=== PATIENT | female | born 1975 | race African-American/Black ===

== ENCOUNTER 2017-10-17 14:07 | Emergency (ER) | payer OTHER ==
[~2017-10-17] VITALS: Ht 175.3 cm; Wt 104.3 kg
[~2017-10-17 14:07] MED LIST: MOTRIN800 MG PO
== END 2017-10-17 18:23 | disposition home or self-care (01) ==
LOC: ER 14:07
DX: H60.8X2 Other otitis externa, left ear (principal)

== ENCOUNTER 2018-11-16 15:09 | Emergency (ER) | payer OTHER ==
[~2018-11-16] VITALS: Ht 175.3 cm; Wt 120.2 kg
[2018-11-16] MEDS ORDERED: TILENOR (15:43)
[2018-11-16] MEDS ORDERED: FLONASE16 GM NASAL (19:02)
[2018-11-16] MEDS ORDERED: CLARITIN-D 241 EACH PO (19:02)
== END 2018-11-16 20:46 | disposition home or self-care (01) ==
LOC: ER 15:09
DX: J06.9 Acute upper respiratory infection, unspecified (principal); J45.998 Other asthma; R09.81 Nasal congestion; R51 Headache; R07.0 Pain in throat

== ENCOUNTER 2019-03-23 16:16 | Emergency (ER) | payer OTHER ==
[~2019-03-23] VITALS: Ht 172.7 cm; Wt 117.9 kg
[~2019-03-23 16:16] MED LIST changes: +CLARITIN-D 241 EACH PO; +FLONASE16 GM NASAL; +TILENOR
[2019-03-23] MEDS ORDERED: CLARITIN10 MG PO (17:56)
[2019-03-23] MEDS ORDERED: IPRAT-ALBUT 0.5-3 ML IH (17:56)
[2019-03-23] MEDS ORDERED: TUSNEL LIQUID178 ML PO (17:56)
== END 2019-03-23 19:13 | disposition home or self-care (01) ==
LOC: ER 16:16
DX: J45.998 Other asthma (principal)

== ENCOUNTER 2020-04-10 14:58 | Emergency (ER) | payer OTHER ==
[~2020-04-10] VITALS: Ht 177.8 cm; Wt 113.4 kg
[~2020-04-10 14:58] MED LIST changes: +CLARITIN10 MG PO; +IPRAT-ALBUT 0.5-3 ML IH; +TUSNEL LIQUID178 ML PO
== END 2020-04-10 20:01 | disposition home or self-care (01) ==
LOC: ER 14:58
DX: N39.0 Urinary tract infection, site not specified (principal); N23 Unspecified renal colic

== ENCOUNTER 2020-05-12 15:59 | Emergency (ER) | payer OTHER ==
[~2020-05-12] VITALS: Ht 152.4 cm; Wt 114.8 kg
== END 2020-05-12 19:07 | disposition home or self-care (01) ==
LOC: ER 15:59
DX: J01.80 Other acute sinusitis (principal); B96.89 Other specified bacterial agents as the cause of diseases classified elsewhere

== ENCOUNTER 2021-07-08 07:11 | Emergency (ER) | payer OTHER ==
[~2021-07-08] VITALS: Ht 172.7 cm; Wt 120.2 kg
== END 2021-07-08 09:00 | disposition home or self-care (01) ==
LOC: ER 07:11
DX: S40.011A Contusion of right shoulder, initial encounter (principal); W10.8XXA Fall (on) (from) other stairs and steps, initial encounter; Y93.89 Activity, other specified; Y92.89 Other specified places as the place of occurrence of the external cause; Z88.6 Allergy status to analgesic agent

== ENCOUNTER 2021-07-11 07:27 | Emergency (ER) | payer OTHER ==
[~2021-07-11] VITALS: Ht 172.7 cm; Wt 120.2 kg
== END 2021-07-11 12:22 | disposition home or self-care (01) ==
LOC: ER 07:27
DX: J22 Unspecified acute lower respiratory infection (principal); U07.1 COVID-19; Z88.8 Allergy status to other drugs, medicaments and biological substances

== ENCOUNTER 2022-06-03 08:48 | Emergency (ER) | payer OTHER ==
[~2022-06-03] VITALS: Ht 172.7 cm; Wt 120.2 kg
[~2022-06-03 08:48] MED LIST changes: +BENADRYL ALLERG25 MG PO; +MEDROLPACK PO
[2022-06-03] MEDS ORDERED: TAMS0.4C PO (14:39)
[2022-06-03] MEDS ORDERED: KETO10TA2 PO (14:39)
== END 2022-06-03 14:47 | disposition home or self-care (01) ==
LOC: ER 08:48
DX: R10.13 Epigastric pain (principal); K76.0 Fatty (change of) liver, not elsewhere classified

== ENCOUNTER 2022-08-21 08:47 | Emergency (ER) | payer OTHER ==
[~2022-08-21] VITALS: Ht 172.7 cm; Wt 113.4 kg
[~2022-08-21 08:47] MED LIST changes: +KETO10TA2 PO; +TAMS0.4C PO
== END 2022-08-21 11:41 | disposition home or self-care (01) ==
LOC: ER 08:47
DX: J45.998 Other asthma (principal); J32.9 Chronic sinusitis, unspecified; Z88.6 Allergy status to analgesic agent; Z91.013 Allergy to seafood; Z20.822 Contact with and (suspected) exposure to COVID-19

== ENCOUNTER 2022-10-19 09:16 | Inpatient (IN) | payer OTHER ==
[~2022-10-19] VITALS: Ht 172.7 cm; Wt 120.2 kg
[2022-10-19] MEDS ORDERED: UCERIS9 MG (09:32)
== END 2022-10-23 16:07 | disposition home or self-care (01) | DRG 203 ==
LOC: ER 09:16 → MEDJ 18:27
PROVIDERS: General Practice; Internal Medicine Infectious Disease; ADMIT Internal Medicine; ATTEND Internal Medicine
PROC: B922ZZZ Computerized Tomography (CT Scan) of Paranasal Sinuses (ICD-10-PCS; principal; 2022-10-20)
PROC: BW24ZZZ Computerized Tomography (CT Scan) of Chest and Abdomen (ICD-10-PCS; 2022-10-20)
DX: J45.51 Severe persistent asthma with (acute) exacerbation (principal); J32.9 Chronic sinusitis, unspecified; M79.18 Myalgia, other site; E66.01 Morbid (severe) obesity due to excess calories

== ENCOUNTER 2023-04-09 08:08 | Emergency (ER) | payer OTHER ==
[~2023-04-09] VITALS: Ht 175.3 cm; Wt 111.1 kg
[~2023-04-09 08:08] MED LIST changes: +UCERIS9 MG
== END 2023-04-09 14:05 | disposition home or self-care (01) ==
LOC: ER 08:08
DX: M54.9 Dorsalgia, unspecified (principal); Z91.013 Allergy to seafood; J45.909 Unspecified asthma, uncomplicated

== ENCOUNTER 2023-05-22 06:03 | Emergency (ER) | payer OTHER ==
[~2023-05-22] VITALS: Ht 172.7 cm; Wt 117.0 kg
[2023-05-22] MEDS ORDERED: METHYLPREDNISOLONE SOD SUCC 125 MG VIAL IV STA (10:11)
== END 2023-05-22 10:35 | disposition home or self-care (01) ==
LOC: ER 06:03
DX: J45.901 Unspecified asthma with (acute) exacerbation (principal); Z91.013 Allergy to seafood

== ENCOUNTER 2023-06-01 06:44 | Emergency (ER) | payer OTHER ==
[~2023-06-01] VITALS: Ht 172.7 cm; Wt 113.4 kg
[2023-06-01] MEDS ORDERED: METHYLPREDNISOLONE SOD SUCC 125 MG VIAL IV STA (08:35)
[2023-06-01] MEDS ORDERED: HYDROCODONE/CHLORPHEN P-STIREX 5 ML ML PO STA (08:36)
[2023-06-01] MEDS ORDERED: LEVALBUTEROL HCL 1.25 MG/3 ML SOLUTION IH SCH (08:45)
[2023-06-01 09:26] LABS: HEMATOCRIT 33.4 % (36.0-45.00); HEMOGLOBIN 10.2 g/dL (12.0-15.00); MEAN CORPUSCULAR HEMOGLOBIN 19.1 pg (27.00-32.0); MEAN CORPUSCULAR HGB CONC 30.6 g/dl (32.0-36.0); PLATELET COUNT 434 K/uL (150-450); RED BLOOD COUNT 5.35 M/uL (4.00-6.00); RED CELL DISTRIBUTION WIDTH 20.1 % (11.5-14.5)
[2023-06-01 09:32] LABS: MEAN CELL VOLUME 62.4 fL (80.00-100.00)
== END 2023-06-01 10:14 | disposition home or self-care (01) ==
LOC: ER 06:45
PROVIDERS: General Practice
DX: J45.909 Unspecified asthma, uncomplicated (principal); Z91.013 Allergy to seafood

== ENCOUNTER 2023-06-05 09:07 | Emergency (ER) | payer OTHER ==
[~2023-06-05] VITALS: Ht 172.7 cm; Wt 113.4 kg
[2023-06-05] MEDS ORDERED: FAMOTIDINE/PF 20 MG in 0.9 % SODIUM CHLORIDE 8 ML IV PUSH STA (09:42)
[2023-06-05] MEDS ORDERED: ONDANSETRON HCL 2 MG/ML VIAL IV ONE (09:45)
[2023-06-05] MEDS ORDERED: KETOROLAC TROMETHAMINE 30 MG VIAL IV ONE (09:45)
[2023-06-05] MEDS ORDERED: GUAIFENESIN/DEXTROMETHORPHAN 100 MG/5 ML ML PO ONE (09:45)
[2023-06-05 10:43] LABS: ALBUMIN 3.4 gm/dL (3.4-5.0); BILIRUBIN TOTAL 0.55 mg/dL (0.3-1.2); CALCIUM 9.6 mg/dL (8.5-10.1); CREATININE SERUM 0.88 mg/dL (0.55-1.02); GFR 68.01; GLOBULINA 5.7 G/DL (2.4-3.5); HEMOGLOBIN 11.1 g/dL (12.0-15.00); MEAN CORPUSCULAR HEMOGLOBIN 19.2 pg (27.00-32.0); MEAN CORPUSCULAR HGB CONC 30.8 g/dl (32.0-36.0); PLATELET COUNT 483 K/uL (150-450); RED BLOOD COUNT 5.78 M/uL (4.00-6.00); RED CELL DISTRIBUTION WIDTH 19.8 % (11.5-14.5); TOTAL PROTEIN 9.1 gm/dL (6.4-8.2)
[2023-06-05 11:00] LABS: MEAN CELL VOLUME 62.2 fL (80.00-100.00)
[2023-06-05] MEDS ORDERED: PEPCID AC20 MG PO (11:48)
== END 2023-06-05 12:07 | disposition home or self-care (01) ==
LOC: ER 09:07
PROVIDERS: General Practice
DX: R10.9 Unspecified abdominal pain (principal); Z91.013 Allergy to seafood

== ENCOUNTER 2023-09-28 10:34 | Emergency (ER) | payer OTHER ==
[~2023-09-28] VITALS: Ht 172.7 cm; Wt 116.1 kg
[~2023-09-28 10:34] MED LIST changes: +PEPCID AC20 MG PO
[2023-09-28] MEDS ORDERED: KETOROLAC TROMETHAMINE 60 MG VIAL IM STA (11:03)
[2023-09-28] MEDS ORDERED: KETOROLAC TROMETHAMINE 60 MG VIAL IM ONE (11:06)
[2023-09-28 11:28] LABS: HEMOGLOBIN 10.3 g/dL (12.0-15.00); MEAN CORPUSCULAR HEMOGLOBIN 19.9 pg (27.00-32.0); MEAN CORPUSCULAR HGB CONC 31.1 g/dl (32.0-36.0); PLATELET COUNT 486 K/uL (150-450); RED BLOOD COUNT 5.17 M/uL (4.00-6.00); RED CELL DISTRIBUTION WIDTH 19.2 % (11.5-14.5)
[2023-09-28 11:30] LABS: MEAN CELL VOLUME 63.9 fL (80.00-100.00)
[2023-09-28 11:55] LABS: CALCIUM 9.6 mg/dL (8.5-10.1); CREATININE SERUM 0.78 mg/dL (0.55-1.02); GFR 78.17; POTASSIUM 3.71 mEq/L (3.5-5.1)
[2023-09-28 12:31] LABS: URINE APPEARANCE Clear; URINE BILIRRUBIN Negative (NEGATIVE); URINE BLOOD Negative; URINE COLOR Yellow; URINE GLUCOSE Negative (NEGATIVE); URINE LEUKOCYTE Negative; URINE NITRATE Negative; URINE PROTEIN Negative (NEGATIVE); URINE UROBILINOGEN 0.2 E.U./dl
[2023-09-28 12:32] LABS: URINE BACTERIA 908.3 uL (0.0-1933); URINE RBC 19.3 uL (0.0-20.8); URINE WBC 3.8 uL (0.0-23.2)
[2023-09-28] MEDS ORDERED: LACTULOSE 20 G/30 ML BLIST.PACK ONE (15:52)
[2023-09-28] MEDS ORDERED: MAGNESIUM HYDROXIDE 30 ML BLIST.PACK PO ONE (15:53)
== END 2023-09-28 17:22 | disposition home or self-care (01) ==
LOC: ER 10:34
PROVIDERS: General Practice
DX: K59.00 Constipation, unspecified (principal); Z87.09 Personal history of other diseases of the respiratory system; Z91.013 Allergy to seafood

== ENCOUNTER 2024-06-08 11:09 | Emergency (ER) | payer OTHER ==
[~2024-06-08] VITALS: Ht 180.3 cm; Wt 98.9 kg
[2024-06-08] MEDS ORDERED: 0.9 % SODIUM CHLORIDE 1,000 ML IV STA (11:46)
[2024-06-08] MEDS ORDERED: FAMOTIDINE/PF 20 MG in 0.9 % SODIUM CHLORIDE 8 ML IV PUSH STA (11:46)
[2024-06-08] MEDS ORDERED: ONDANSETRON HCL 2 MG/ML VIAL IV STA (11:46)
[2024-06-08 12:38] LABS: PH,URINE 6.5 (5.0-8.0); URINE APPEARANCE Clear; URINE BILIRRUBIN Negative (NEGATIVE); URINE BLOOD Negative; URINE COLOR Yellow; URINE GLUCOSE Negative (NEGATIVE); URINE KETONE Negative (NEGATIVE); URINE LEUKOCYTE Negative; URINE NITRATE Negative; URINE PROTEIN Negative (NEGATIVE); URINE UROBILINOGEN 0.2 E.U./dl
[2024-06-08 12:41] LABS: URINE BACTERIA 63.6 uL (0.0-1933); URINE EPITHELIAL CELLS 4.7 uL (0.0-38.8); URINE RBC 5.1 uL (0.0-20.8)
[2024-06-08 12:44] LABS: HEMATOCRIT 29.7 % (36.0-45.00); MEAN CORPUSCULAR HGB CONC 28.9 g/dl (32.0-36.0); PLATELET COUNT 551 K/uL (150-450); RED BLOOD COUNT 4.99 M/uL (4.00-6.00)
[2024-06-08 12:44] LABS: URINE WBC 1.5 uL (0.0-23.2)
[2024-06-08 12:45] LABS: CALCIUM 9.2 mg/dL (8.5-10.1); CREATININE SERUM 0.62 mg/dL (0.55-1.02); GFR 101.48; POTASSIUM 3.93 mEq/L (3.5-5.1)
[2024-06-08 12:47] LABS: MEAN CORPUSCULAR HEMOGLOBIN 17.2 pg (27.00-32.0)
[2024-06-08 12:48] LABS: HEMOGLOBIN 8.6 g/dL (12.0-15.00); MEAN CELL VOLUME 59.4 fL (80.00-100.00)
== END 2024-06-08 15:37 | disposition home or self-care (01) ==
LOC: ER 11:10
PROVIDERS: Emergency Medicine
DX: K52.89 Other specified noninfective gastroenteritis and colitis (principal); Z91.013 Allergy to seafood

== ENCOUNTER 2024-10-27 06:11 | Emergency (ER) | payer OTHER ==
[~2024-10-27] VITALS: Ht 172.7 cm; Wt 102.1 kg
[2024-10-27] MEDS ORDERED: LACTULOSE 10 G/15 ML ML PO STA (06:50)
[2024-10-27] MEDS ORDERED: MINERAL OIL 30 ML BLIST.PACK PO STA (06:51)
[2024-10-27] MEDS ORDERED: MAGNESIUM HYDROXIDE 400 MG/5 ML ML PO STA (06:51)
[2024-10-27] MEDS ORDERED: HYOSCYAMINE SULFATE 0.125 MG TAB.SUBL SL ONE (07:00)
== END 2024-10-27 10:22 | disposition home or self-care (01) ==
LOC: ER 06:11
DX: K59.01 Slow transit constipation (principal); Z91.013 Allergy to seafood

== ENCOUNTER 2024-10-31 06:20 | Emergency (ER) | payer OTHER ==
[~2024-10-31] VITALS: Ht 152.4 cm; Wt 99.8 kg
[2024-10-31] MEDS ORDERED: FAMOtidine 10 MG/ML (4ML VIAL) IV ONE (09:00)
[2024-10-31] MEDS ORDERED: DIPHENHYDRAMINE HCL 50 MG/ML VIAL 1ML IV ONE (09:00)
[2024-10-31] MEDS ORDERED: METHYLPREDNISOLONE SOD SUCC 40 MG VIAL IV ONE (09:00)
[2024-10-31] MEDS ORDERED: 0.9 % SODIUM CHLORIDE 1,000 ML IV ONE (09:00)
[2024-10-31 09:25] LABS: BASO % 0.7 % (0.1-1.2); EOS # 0.17 (0.04-0.54); EOS % 2.9 % (0.7-7.0); LYMPH # 1.98 (1.18-3.74); LYMPH % 34.0 % (19.3-53.1); MEAN PLATELET VOLUME 9.20 fl (9.4-12.4); MONO # 0.43 (0.24-0.82); MONO % 7.4 % (4.7-12.5); NEUT # 3.20 (1.56-6.13); NEUT % 54.8 % (34.0-71.1); RED CELL DISTRIBUTION WIDTH 19.2 % (11.6-14.4)
[2024-10-31 09:46] LABS: INR 1.05
[2024-10-31 09:52] LABS: ALT/SGPT 15.0 U/L (12-78); AST/SGOT 9.0 U/L (15-37); BILIRUBIN TOTAL 0.62 mg/dL (0.3-1.2); BUN CREA RATIO 16.0 (7.0-25.0); CREATININE SERUM 0.67 mg/dL (0.55-1.02); GFR 92.79; GLOBULINA 4.9 G/DL (2.4-3.5); GLUCOSE FASTING 90.0 mg/dL (65-100); OSMOLALITY SERUM 280.0 MOSM/KG (275-295)
[2024-10-31] MEDS ORDERED: PROBIOTIC1 EAC2 PO (13:01)
[2024-10-31] MEDS ORDERED: METRONIDAZOLE500 MG PO (13:01)
[2024-10-31] MEDS ORDERED: PEPCID AC20 MG PO (13:01)
== END 2024-10-31 13:25 | disposition home or self-care (01) ==
LOC: ER 06:20
PROVIDERS: General Practice
DX: K59.00 Constipation, unspecified (principal); R10.9 Unspecified abdominal pain; Z91.013 Allergy to seafood
CPT/HCPCS: 36415; 74177; Q9965

== ENCOUNTER 2024-11-07 09:30 | Emergency (ER) | payer OTHER ==
[~2024-11-07] VITALS: Ht 175.3 cm; Wt 100.2 kg
[~2024-11-07 09:30] MED LIST changes: +METRONIDAZOLE500 MG PO; +PROBIOTIC1 EAC2 PO
[2024-11-07] MEDS ORDERED: FAMOTIDINE/PF 20 MG in 0.9 % SODIUM CHLORIDE 8 ML IV PUSH STA (10:19)
[2024-11-07] MEDS ORDERED: SUCRALFATE 1 G TABLET PO ONE (10:30)
[2024-11-07 10:43] LABS: BASO % 0.5 % (0.1-1.2); EOS # 0.14 (0.04-0.54); EOS % 1.7 % (0.7-7.0); LYMPH # 1.96 (1.18-3.74); LYMPH % 24.2 % (19.3-53.1); MEAN PLATELET VOLUME 9.20 fl (9.4-12.4); MONO # 0.81 (0.24-0.82); MONO % 10.0 % (4.7-12.5); NEUT # 5.12 (1.56-6.13); NEUT % 63.4 % (34.0-71.1); RED CELL DISTRIBUTION WIDTH 18.8 % (11.6-14.4)
[2024-11-07 10:55] LABS: URINE APPEARANCE Clear; URINE BACTERIA 574.7 uL (0.0-1933); URINE BILIRRUBIN Negative (NEGATIVE); URINE BLOOD Negative; URINE CAST 1.61 uL (0.0-1.40); URINE COLOR Yellow; URINE EPITHELIAL CELLS 21.0 uL (0.0-38.8); URINE GLUCOSE Negative (NEGATIVE); URINE KETONE Trace (NEGATIVE); URINE LEUKOCYTE Trace; URINE NITRATE Negative; URINE PROTEIN Trace (NEGATIVE); URINE RBC 24.4 uL (0.0-20.8); URINE UROBILINOGEN 1.0 E.U./dl; URINE WBC 7.5 uL (0.0-23.2)
[2024-11-07 11:22] LABS: ALT/SGPT 22.0 U/L (12-78); AST/SGOT 16.0 U/L (15-37); BILIRUBIN TOTAL 0.51 mg/dL (0.3-1.2); BUN CREA RATIO 14.0 (7.0-25.0); CREATININE SERUM 0.83 mg/dL (0.55-1.02); GFR 72.47; GLOBULINA 5.3 G/DL (2.4-3.5); GLUCOSE FASTING 98.0 mg/dL (65-100); OSMOLALITY SERUM 274.0 MOSM/KG (275-295)
[2024-11-07] MEDS ORDERED: MAGNESIUM HYDROXIDE 400 MG/5 ML ML PO ONE (15:00)
[2024-11-07] MEDS ORDERED: MINERAL OIL 30 ML BLIST.PACK PO ONE (15:00)
[2024-11-07] MEDS ORDERED: LACTULOSE 20 G/30 ML BLIST.PACK PO ONE (15:00)
== END 2024-11-07 15:45 | disposition home or self-care (01) ==
LOC: ER 09:30
PROVIDERS: Emergency Medicine
DX: K59.00 Constipation, unspecified (principal); D64.9 Anemia, unspecified; R10.9 Unspecified abdominal pain; Z91.013 Allergy to seafood

== ENCOUNTER 2025-01-16 14:37 | Emergency (ER) | payer OTHER ==
[~2025-01-16] VITALS: Ht 172.7 cm; Wt 102.1 kg
[2025-01-16] MEDS ORDERED: 0.9 % SODIUM CHLORIDE 500 ML IV SCH (16:00)
[2025-01-16] MEDS ORDERED: DEXAMETHASONE SODIUM PHOSP/PF 10 MG/ML VIAL IV ONE (16:00)
[2025-01-16] MEDS ORDERED: ACETAMINOPHEN 500 MG GEL..CAP PO ONE ×2 (16:00→18:22)
[2025-01-16] MEDS ORDERED: ORPHENADRINE CITRATE 30 MG/ML AMPUL IV ONE (16:00)
[2025-01-16] MEDS ORDERED: FAMOTIDINE/PF 20 MG/2 ML VIAL IV ONE (16:00)
[2025-01-16] MEDS ORDERED: ORPHENADRINE CITRATE 30 MG/ML AMPUL ONE (18:22)
[2025-01-16] MEDS ORDERED: DEXAMETHASONE SODIUM PHOSPHATE 4 MG/ML VIAL ONE (18:22)
[2025-01-16] MEDS ORDERED: FAMOTIDINE/PF 20 MG/2 ML VIAL ONE (18:22)
[2025-01-16 19:53] LABS: ALT/SGPT 20.0 U/L (12-78); AST/SGOT 13.0 U/L (15-37); BILIRUBIN TOTAL 0.68 mg/dL (0.3-1.2); BUN CREA RATIO 15.0 (7.0-25.0); CREATININE SERUM 0.74 mg/dL (0.55-1.02); GFR 82.74; GLOBULINA 4.7 G/DL (2.4-3.5); GLUCOSE FASTING 87.0 mg/dL (65-100); OSMOLALITY SERUM 282.0 MOSM/KG (275-295)
[2025-01-16 20:10] LABS: BASO % 0.7 % (0.1-1.2); EOS # 0.17 (0.04-0.54); EOS % 2.9 % (0.7-7.0); LYMPH # 2.27 (1.18-3.74); LYMPH % 38.5 % (19.3-53.1); MEAN PLATELET VOLUME 10.10 fl (9.4-12.4); MONO # 0.50 (0.24-0.82); MONO % 8.5 % (4.7-12.5); NEUT # 2.89 (1.56-6.13); NEUT % 49.1 % (34.0-71.1)
[2025-01-16 20:12] LABS: RED CELL DISTRIBUTION WIDTH 23.7 % (11.6-14.4)
[2025-01-16 20:18] LABS: URINE APPEARANCE Clear; URINE BILIRRUBIN Negative (NEGATIVE); URINE BLOOD Negative; URINE COLOR Yellow; URINE GLUCOSE Negative (NEGATIVE); URINE KETONE Trace (NEGATIVE); URINE LEUKOCYTE Negative; URINE NITRATE Negative; URINE PROTEIN Negative (NEGATIVE); URINE UROBILINOGEN 1.0 E.U./dl
[2025-01-16 20:22] LABS: URINE BACTERIA 142.7 uL (0.0-1933); URINE EPITHELIAL CELLS 12.3 uL (0.0-38.8); URINE RBC 18.3 uL (0.0-20.8); URINE WBC 7.8 uL (0.0-23.2)
[2025-01-16 20:36] LABS: URINE CAST 0.29 uL (0.0-1.40)
[2025-01-16 20:37] LABS: URINE MUCUS MODERATE
[2025-01-16 20:38] LABS: URINE CRYSTALS MODERATE /HPF
[2025-01-16] MEDS ORDERED: TIZANIDINE HCL4 M1 PO (21:37)
[2025-01-16] MEDS ORDERED: TYLENOL ARTHRI650 MG PO (21:37)
== END 2025-01-16 22:23 | disposition home or self-care (01) ==
LOC: ER 14:37
PROVIDERS: Student in an Organized Health Care Education/Training Program
DX: R82.998 Other abnormal findings in urine (principal); M62.838 Other muscle spasm; R10.A2 Flank pain, left side; D64.9 Anemia, unspecified; R10.9 Unspecified abdominal pain; Z91.013 Allergy to seafood